=== PATIENT | female | born 2000 | race Caucasian/White ===

== ENCOUNTER → 2019-10-29 | Outpatient (CLI) | payer BC, MEDICAID ==
--- NOTE | 2019-10-29 08:41 | Diagnostic Imaging Report ---
INDICATION: Right upper quadrant abdominal pain TECHNIQUE: Multiple grayscale sonographic images were obtained of the right upper quadrant of the abdomen. CORRELATION STUDY: None FINDINGS: LIVER: There is uniform echotexture within the visualized portions of the liver. There is normal, hepatopedal direction of flow within the main portal vein. Borderline enlarged, 19.3 cm. GALLBLADDER: The gallbladder demonstrates no definitive shadowing gallstones. No abnormal gallbladder wall thickening or pericholecystic fluid. COMMON BILE DUCT: Nondilated at 5 mm. PANCREAS: Largely obscured and not well visualized. RIGHT KIDNEY: Measures 11.3 x 3.6 x 4.4 cm. No hydronephrosis. AORTA/IVC: Not well visualized. OTHER: None. IMPRESSION: 1. Negative for acute abnormality on right upper quadrant abdominal ultrasound. 2. Borderline hepatomegaly. Dictated by: Dictated on workstation # [id number]
== END ==
LOC: RAD 07:59
PROVIDERS: ATTEND Nurse Practitioner Family
DX: R10.11 Right upper quadrant pain (principal); R10.13 Epigastric pain; R74.8 Abnormal levels of other serum enzymes; R16.0 Hepatomegaly, not elsewhere classified
CPT/HCPCS: 76705

== ENCOUNTER 2020-01-18 16:55 | Emergency (ER) | payer BC ==
[~2020-01-18] VITALS: Ht 168 cm; Wt 90.7 kg
--- NOTE | 2020-01-18 17:11 | ED EENT ---
History of Present Illness General Chief Complaint: Oral/Throat Problems Stated Complaint: TONSILS Source: patient Exam Limitations: no limitations History of Present Illness Date Seen by Provider: Jan 18, 2020 Time Seen by Provider: 17:00 Initial Comments Patient presents ER by private conveyance with chief complaint that today she noticed some swelling of her left tonsil that was very erythematous tender and made it a little more difficult to swallow but she is able to drink fluids. She's not having any difficulty breathing. She says her tonsils always been large and when she was a child her doctor wanted the patient to have tonsillectomy but the mother declined. No fevers chills cough shortness of breath nausea vomiting or diarrhea. No sick contacts. No abdominal pain. Patient reports having multiple bouts of strep throat in the past. Allergies and Home Medications Allergies Coded Allergies: No Known Drug Allergies (Unverified Allergy, Mild, 10/29/08) Patient Home Medication List Home Medication List Reviewed: Yes Review of Systems Review of Systems Constitutional: No chills, No diaphoresis Eyes: Denies Blindness, Denies Blurred Vision Ears: Denies Dizziness, Denies Pain, Denies Tinnitus Nose: denies clots, denies congestion Mouth: see HPI Throat: see HPI, pain, swelling; denies neck stiffness; painful swallowing; denies difficulty with fluids Respiratory: No cough, No phlegm Cardiovascular: No chest pain, No edema Gastrointestinal: No abdominal pain, No nausea, No vomiting Musculoskeletal: No back pain, No joint pain All Other Systems Reviewed Negative Unless Noted: Yes Past Ezdqgoo-Xerdbr-Mldzqc Hx Patient Social History Alcohol Use: Denies Use Recreational Drug Use: No Smoking Status: Never a Smoker Recent Foreign Travel: No Contact w/Someone Who Travel: No Past Medical History Reproductive Disorders: No Adverse Reaction/Blood Tranf: No Physical Exam Vital Signs Vital Signs - First Documented 01/18/20 17:05 Temp 36.9 Pulse 95 Resp 17 B/P (MAP) 122/77 (92) O2 Delivery Room Air Height, Weight, BMI Height: 5'6" Weight: 165lbs. oz. 74.574822gi; BMI Method: General Appearance: WD/WN, no apparent distress Eyes: bilateral eye normal inspection, bilateral eye PERRL, bilateral eye EOMI Ears: bilateral ear auricle normal, bilateral ear canal normal, bilateral ear TM normal Nose: normal inspection; No active bleeding, No discharge Mouth/Throat: tonsillar swelling (with a red tuft of the soft tissue at the superior pole and some mild exudate and injection.) Neck: non-tender, full range of motion, supple, normal inspection Cardiovascular: normal peripheral pulses, regular rate, rhythm Respiratory: lungs clear, normal breath sounds, no respiratory distress, no accessory muscle use Neurologic/Psychiatric: alert, normal mood/affect, oriented x 3 Skin: normal color, warm/dry Progress/Results/Core Measures Results/Orders Lab Results Laboratory Tests Test 01/18/20 17:10 Range/Units Group A Streptococcus Screen NEGATIVE NEGATIVE My Orders Orders - FRANK VELASQUEZ Rapid Strep A Screen (01/18/20 17:07) Vital Signs/I&O 01/18/20 17:05 Temp 36.9 Pulse 95 Resp 17 B/P (MAP) 122/77 (92) O2 Delivery Room Air Progress Progress Note : Time: 17:11 Progress Note Rapid strep swab and we will refer to ENT. Departure Impression Primary Impression: Acute viral tonsillitis Disposition: 01 HOME, SELF-CARE Condition: Stable Departure-Patient Inst. Decision time for Depature: 17:57 Referrals: SHELBI SORIA MD NO,LOCAL PHYSICIAN (PCP) Primary Care Physician Patient Instructions: Sore Throat, Adult (DC) Add. Discharge Instructions: Salt water gargles, Tylenol and ibuprofen as necessary for discomfort. We should have a culture back in about 2-3 days we will call you if it is positive. You can follow-up with Dr. Soria if you have concerns and wanted to pursue tonsillectomy. Please return to the nearest ER if you are having difficulty breathing or cannot swallow fluids. All discharge instructions reviewed with patient and/or family. Voiced understanding. Copy Copies To 1: SHELBI SORIA MD, TITUS J Jan 18, 2020 17:11
[2020-01-18 18:05] VITALS: BP 117/68
== END 2020-01-18 18:05 | disposition home or self-care (01) ==
LOC: EDUNIT# 16:55 → ER 16:57
DX: J03.90 Acute tonsillitis, unspecified (principal)
CPT/HCPCS: 87430; 99284

== ENCOUNTER → 2021-02-10 | Outpatient (CLI) | payer BC ==
--- NOTE | 2021-02-10 16:39 | Diagnostic Imaging Report ---
INDICATION: Pain in right ankle and joints of right foot. COMPARISON: None. FINDINGS: Three views of the right ankle were obtained. There is no acute fracture or dislocation. No focal osseous lesions are seen. The surrounding soft tissue structures are unremarkable. There are no radiopaque foreign bodies. IMPRESSION: 1. No acute fracture or dislocation in the right ankle. Dictated by: Dictated on workstation # [id number]
== END ==
LOC: RAD 16:02
PROVIDERS: ATTEND Nurse Practitioner Family
DX: M25.571 Pain in right ankle and joints of right foot (principal)
CPT/HCPCS: 73610